=== PATIENT | female | born 1960 | race Caucasian/White ===

== ENCOUNTER 2019-04-08 12:01 | Emergency (ER) | payer OTHER ==
[2019-04-08 13:20] VITALS: BP 145/77
--- NOTE | 2019-04-08 13:35 | UC ---
Eye Complaint HPI - HPI Summary HPI Summary: bilateral eye redness x 3 days has been using fake eyelashes for the past 3 days no the eyes / eyelid is red, swollen , clear discharge, no eye pain , no photophobia no change in vision - History of Current Complaint Chief Complaint: UCEye Stated Complaint: BILATERAL EYE COMPLAINT Time Seen by Provider: 04/08/19 13:05 Hx Obtained From: Patient Onset/Duration: Gradual Onset, Lasting Days - 3, Still Present Timing: Constant Severity Initially: Moderate Severity Currently: Moderate Pain Intensity: 6 Location of Injury: Conjunctiva, Eye Lid (lower), Eye Lid (upper) Character: Foreign Body Sensation Aggravating Factor(s): Nothing Alleviating Factor(s): Nothing Associated Signs And Symptoms: Positive: Drainage (Clear), Swelling. Negative: Drainage (Purulent), Vision Impairment Bilateral, Vision Impairment Right, Vision Impairment Left, Fever - Allergies/Home Medications Allergies/Adverse Reactions: Allergies Allergy/AdvReac Type Severity Reaction Status Date / Time thimerosal Allergy Unknown local Verified 04/08/19 13:08 reaction skin adhesive Allergy Unknown swellling Uncoded 04/08/19 13:10 and itching Home Medications: Home Medications Otc Allergy Eye Drops PRN 04/08/19 [History] PMH/Surg Hx/FS Hx/Imm Hx Previously Healthy: Yes - Surgical History Surgical History: Yes Surgery Procedure, Year, and Place: HYSTERECTOMY. GALL BLADDER. TWO CERVICAL DISC FUSIONS - Family History Known Family History: Negative: Diabetes - Social History Alcohol Use: Occasionally Substance Use Type: None Smoking Status (MU): Former Smoker When Did the Patient Quit Smoking/Using Tobacco: 15 YEARS AGO Review of Systems All Other Systems Reviewed And Are Negative: Yes Constitutional: Positive: Negative Skin: Positive: Negative Eyes: Positive: Drainage ENT: Positive: Negative Respiratory: Positive: Negative Is Patient Immunocompromised?: No Physical Exam Triage Information Reviewed: Yes Appearance: Well-Appearing, No Pain Distress, Well-Nourished Vital Signs: Initial Vital Signs Temp 97.7 F 04/08/19 13:12 Pulse 69 04/08/19 13:12 Resp 18 04/08/19 13:12 BP 145/77 04/08/19 13:12 Pulse Ox 100 04/08/19 13:12 Vital Signs Reviewed: Yes Eye Exam: Normal Eyes: Positive: Conjunctiva Inflamed, Discharge - clear, Other: - bilatera erythema / redness of upper and lower eyelids b/l ENT: Positive: Normal ENT inspection, Hearing grossly normal, Pharynx normal Neck: Positive: Supple, Nontender, No Lymphadenopathy Respiratory: Positive: Chest non-tender, Lungs clear, Normal breath sounds Cardiovascular: Positive: RRR, No Murmur, Pulses Normal Skin Exam: Normal Eye Complaint Course/Dx - Differential Dx/Diagnosis Provider Diagnosis: Allergic conjunctivitis Discharge ED - Sign-Out/Discharge Documenting (check all that apply): Patient Departure All imaging exams completed and their final reports reviewed: No Studies - Discharge Plan Condition: Stable Disposition: HOME Prescriptions: Tobramycin/Dexamethasone [Tobradex] 1 drop OPHTHALMIC Q4H #1 bottle Patient Education Materials: Conjunctivitis (ED) Referrals: No Primary Care Phys,NOPCP [Primary Care Provider] - 5 Days Additional Instructions: allergic conjunctivitis - Billing Disposition and Condition Condition: STABLE Disposition: Home
== END 2019-04-08 13:37 | disposition home or self-care (01) ==
LOC: UCCORT 12:01
DX: H10.13 Acute atopic conjunctivitis, bilateral (principal); Z87.891 Personal history of nicotine dependence
CPT/HCPCS: 99202; G0463